=== PATIENT | male | born 1960 | race Caucasian/White ===

== ENCOUNTER 2017-10-03 16:05 | Emergency (ER) | payer BC ==
[2017-10-03 16:17] VITALS: BP 133/89
[2017-10-03] MEDS ORDERED: Fluorescein Sod TOPICAL 0.6* 0.6 MG TEST OPHTHALMIC ONE (16:31)
[2017-10-03] MEDS ORDERED: Tetracaine 0.5% OPTH.SOL 4 ML* 1 DROP BTL LEFT EYE ONE (16:31)
--- NOTE | 2017-12-09 09:14 | UC ---
Mitch Douglas Gabriel, scribed for Marilyn Poon MD on 10/03/17 at 1628 . Eye Complaint HPI - HPI Summary HPI Summary: This patient is a 57 year old M presenting to [facility] with a chief complaint of a swollen left eye lid that he noticed upon waking up this morning. The patient rates the dull pain 2/10 in severity. Patient reports eyelid pain. Patient denies TEJEDA, cough, fever, SOB, CP, ABD pain, nausea, and itching. Pt has not been wielding recently and does not wear contact lenses. He states that is does not feel like a foreign body is in his eye. - History of Current Complaint Chief Complaint: UCEye Stated Complaint: EYE COMPLAINT Time Seen by Provider: 10/03/17 16:20 Hx Obtained From: Patient Onset/Duration: Lasting Hours, Still Present Timing: Constant Severity Initially: Mild Severity Currently: Mild Pain Intensity: 2 Pain Scale Used: 0-10 Numeric Location of Injury: Eye Lid (upper) Character: Dull Associated Signs And Symptoms: Positive: Negative - itching - Allergies/Home Medications Allergies/Adverse Reactions: Allergies Allergy/AdvReac Type Severity Reaction Status Date / Time No Known Allergies Allergy Verified 10/03/17 16:17 PMH/Surg Hx/FS Hx/Imm Hx - Additional Past Medical History Additional PMH: Arthritis Other History Of: Negative For: Anticoagulant Therapy - Surgical History Surgical History: None - Family History Known Family History: Positive: Cardiac Disease Negative: Respiratory Disease, Seizure Disorder - Social History Occupation: Employed Full-time Lives: With Family Alcohol Use: None Substance Use Type: None Smoking Status (MU): Heavy Every Day Tobacco Smoker - Immunization History Most Recent Tetanus Shot: unk Review of Systems Constitutional: Negative - fever Eyes: Other - swelling in left lid, pain at left lid All Other Systems Reviewed And Are Negative: Yes Physical Exam - Summary Physical Exam Summary: Appearance: Well-Nourished Eye Exam: Normal ENT Exam: Normal, No adenopathy appreciated. Left TM is scared, right is normal Respiratory Exam: Normal, no dyspnea, no tachypnea, normal respiratory rate Cardiovascular Exam: Normal Cardiovascular: Heart rate regular, good general skin color, good capillary refill Abdominal Exam: Normal Abdomen Description: Nontender, No Organomegaly, Soft Bowel Sounds: Present Musculoskeletal Exam: Normal Musculoskeletal: Strength Intact Neurological Exam: Normal: nonfocal, grossly intact Psychological Exam: Normal: conversing easily and appropriately Skin Exam: Normal: no visible or reported rash Triage Information Reviewed: Yes Vital Signs: Initial Vital Signs Temp 98.2 F 10/03/17 16:12 Pulse 76 10/03/17 16:12 Resp 18 10/03/17 16:12 BP 133/89 10/03/17 16:12 Pulse Ox 97 10/03/17 16:12 Vital Signs Reviewed: Yes Procedures - Procedure Summary Procedure Summary: Fluorescence drops placed in the left eye there was no uptake, no foreign body seen. Eye Complaint Course/Dx - Differential Dx/Diagnosis Provider Diagnoses: Elevated blood pressure without a previous diagnoses of hypertension Discharge - Sign-Out/Discharge Documenting (check all that apply): Discharge/Admit/Transfer - Discharge Plan Condition: Stable Disposition: HOME Prescriptions: Erythromycin OPTH OINT* [Erythromycin 0.5% OPTH OINT*] 1 applic LEFT EYE TID #1 ophth.oint Olopatadine 0.1% OPHTH (NF) [Patanol 0.1% OPHTH (NF)] 0.1 % OP BID #1 bottle Patient Education Materials: Antihistamine (By mouth), Ibuprofen (By mouth), Stye (ED) Referrals: Michael Bermeo MD [Primary Care Provider] - Clemente Stiles MD [Medical Doctor] - Triston Powers MD [Medical Doctor] - Additional Instructions: Your blood pressure was elevated during today's visit, 133/89. Please follow up with your primary care provider in 1-2 weeks. Please seek medical attention for worse or new problems. Please follow up with eye doctor. Call Friday for appointment, if your eye is not better. seek medical attention in the meantime if worse. - Billing Disposition and Condition Condition: STABLE Disposition: Home The documentation as recorded by the Mitch beth Gabriel accurately reflects the service I personally performed and the decisions made by me, Marilyn Poon MD.
== END 2017-10-03 17:25 | disposition home or self-care (01) ==
LOC: UCEAST 16:05
DX: H02.844 Edema of left upper eyelid (principal); H57.12 Ocular pain, left eye; R03.0 Elevated blood-pressure reading, without diagnosis of hypertension; Z82.49 Family history of ischemic heart disease and other diseases of the circulatory system; F17.200 Nicotine dependence, unspecified, uncomplicated
CPT/HCPCS: 99212; A9270-GY; G0463

== ENCOUNTER 2018-04-09 16:26 | Observation (INO) | payer BC ==
--- NOTE | 2018-04-09 19:01 | ED ---
Neurological HPI - HPI Summary HPI Summary: A 57 y/o M presents to ED by car with c/o L-sided neck pain onset this afternoon. Pt says he first noticed L-sided facial numbness near his mouth this AM upon waking, but he did not dribble his coffee. The neck pain worsened throughout the day. He also c/o full-body tingling on L side. Associated sx include slurring words and L-sided facial droop at 1330 as witnessed by daughter during lunch. Daughter is not present at bedside. Denies dysphagia. Aggravating factors: stress (per ). Per , these sx have presented in the past and theyve never gotten a specific dx. Pt was doing bathroom repairs earlier today. He took Tylenol during lunch. Vital signs while in room: BP 162/89. 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 Onset/Duration: Gradual Onset, Started hours ago, Still Present Timing: Constant Onset Severity: Moderate Current Severity: Mild Number of Seizures: 0 Pain Intensity: 6 Pain Scale Used: 0-10 Numeric Number of Episodes: 0 Aggravating: Stress Alleviating: Nothing Associated Signs and Symptoms: Positive: Impaired Speech, Numbness, Neck Pain/ Stiffness - Allergy/Home Medications Allergies/Adverse Reactions: Allergies Allergy/AdvReac Type Severity Reaction Status Date / Time No Known Allergies Allergy Verified 04/09/18 16:36 Home Medications: Home Medications Cyclobenzaprine TAB* [Flexeril 10 MG TAB*] 10 mg PO TID PRN 04/09/18 [History Confirmed 04/09/18] PMH/Surg Hx/FS Hx/Imm Hx Previously Healthy: No Endocrine/Hematology History: Denies: Hx Anticoagulant Therapy, Hx Diabetes, Hx Thyroid Disease Cardiovascular History: Denies: Hx Hypertension Respiratory History: Denies: Hx Asthma, Hx Chronic Obstructive Pulmonary Disease (COPD) GI History: Denies: Hx Ulcer Musculoskeletal History: Reports: Hx Back Problems - Surgical History Surgery Procedure, Year, and Place: R-sided facial surgery as child - Immunization History Immunizations Up to Date: Yes Infectious Disease History: No Infectious Disease History: Denies: Hx Hepatitis, Hx Human Immunodeficiency Virus (HIV), Traveled Outside the [place] in Last 30 Days - Family History Known Family History: Positive: Cardiac Disease - mom - NH in her 80s; brother NH 2x, Other - liver CA Negative: Respiratory Disease, Seizure Disorder - Social History 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 Lives: With Family Alcohol Use: None Hx Substance Use: No Substance Use Type: Reports: None Hx Tobacco Use: Yes Smoking Status (MU): Heavy Every Day Tobacco Smoker Review of Systems Negative: Other - neg: dysphagia Positive: Other - pos: L-sided neck pain Neurological: Other - pos: L-sided full-body tingling; L-sided facial droop; Positive: Numbness - L-sided face by mouth, Slurred Speech All Other Systems Reviewed And Are Negative: Yes Physical Exam - Summary Physical Exam Summary: Appearance: Well-appearing, moderate pain distress, well-nourished Skin: Warm, color reflects adequate perfusion, dry Head: Normal Head/Face inspection, atraumatic Eyes: Conjunctiva clear ENT: Normal inspection, poor dentition Neck: Supple, no nodes, no JVD Respiratory: Lungs clear, normal breath sounds, no respiratory distress Cardio: RRR, No murmur, pulses normal, brisk capillary refill Abdomen: Soft, nontender Bowel sounds: Present Musculoskeletal: Strength Intact/ROM intact, no calf tenderness, no edema. Psychological: Normal Neuro: A&O x3, CN II-XII intact, motor function 5/5, sensation intact, cerebellar normal. See HPI. Triage Information Reviewed: Yes Vital Signs On Initial Exam: Initial Vitals Temp Pulse Resp BP Pulse Ox 97.1 F 67 18 147/81 98 04/09/18 16:28 04/09/18 16:28 04/09/18 16:28 04/09/18 16:28 04/09/18 16:28 Vital Signs Reviewed: Yes - Edmar Coma Scale Best Eye Response: 4 - Spontaneous Best Motor Response: 6 - Obeys Commands Best Verbal Response: 5 - Oriented Coma Scale Total: 15 Diagnostics - Vital Signs Vital Signs Temp Pulse Resp BP Pulse Ox 04/09/18 18:20 98.2 F 63 16 143/78 99 04/09/18 16:28 97.1 F 67 18 147/81 98 - Laboratory Result Diagrams: 04/09/18 19:29 04/09/18 19:29 Lab Statement: Any lab studies that have been ordered have been reviewed, and results considered in the medical decision making process. - CT BRAIN CT Interpretation Completed By: Radiologist Summary of CT Findings: IMPRESSION: No acute intracranial pathology. ED provider has reviewed this report. CTA head and neck CT Interpretation Completed By: Radiologist Summary of CT Findings: Neg CTA brain and neg CTA neck. Bilateral maxillary sinus disease, right greater than left. - EKG 1929 Cardiac Rate: NL - 61 bpm EKG Rhythm: Sinus Rhythm ST Segment: Non-Specific Ectopy: None EKG Comparison: Other - No prior EKG. Summary of EKG Findings: An EKG at [address], nml QTc, and nml axis. No prior EKG for comparison. NIH Scale - NIH Scale Level of Consciousness: Alert/Keenly Responsive Ask Patient the Month and His/Her Age: Both Correct Ask Pt to Open/Close Eyes and Healthcare Manager/Release Non-Paretic Hand: Both Correctly Best Gaze (Only Horizontal Eye Movement): Normal Visual Field Testing: No Visual Loss Facial Paresis-Pt to Smile & Close Eyes or Grimace Symmetry: Normal/Symmetrical Motor Function - Right Arm: No Drift-Holds 10 Seconds Motor Function - Left Arm: No Drift-Holds 10 Seconds Motor Function - Right Leg: No Drift-Holds 10 Seconds Motor Function - Left Leg: No Drift-Holds 10 Seconds Limb Ataxia-Must be out of Proportion to Weakness Present: Absent Sensory (Use Pinprick to Test Arms/Legs/Trunk/Face): Normal Best Language (Describe Picture, Name Items): No Aphasia Dysarthria (Read Several Words): Normal Extinction and Inattention: No Abnormality Total Score: 0 Re-Evaluation - Re-Evaluation First Eval Re-Evaluation Time: 20:15 Change: Unchanged Comment: No new sxs. No facial droop. BP 150/90. with pt. Both informed of CT brain results. Second Eval Re-Evaluation Time: 22:15 Change: Unchanged Comment: still with left lip numbness, no other weakness, aphasia or facial droop. BP 133/84. P57. Course/Dx - Course Course Of Treatment: Pt is a 57 y/o M presenting with c/o L-sided neck pain onset this afternoon. He first noticed L-sided facial numbness near his mouth this AM, but he did not dribble his coffee. The neck pain worsened throughout the day. He also c/o full-body tingling on L side. Associated sx include slurring words and L-sided facial droop at 1330 as witnessed by daughter during lunch. Daughter is not present at bedside. Denies dysphagia. Pt's NIH score is 0, and upon PE, is neurologically intact. Lab results show: WBC: 10.9, APTT: 38.6. UA shows 1+ blood and low specific gravity. EKG is NSR and Brain CT shows no acute intracranial pathology. Toxicology is negative. UA reviewed. Allergies noted, high blood pressure noted. Pt medications reviewed this visit. - Differential Dx Differential Diagnoses Neuro: Positive: Cerebrovascular Accident, Transient Ischemic Attack - Diagnoses Provider Diagnoses: Hypertension, poor control, Tobacco abuse disorder, TIA (transient ischemic attack) - Physician Notifications Discussed Care Of Patient With: Hong Dixon Time Discussed With Above Provider: 22:30 Discharge - Sign-Out/Discharge Documenting (check all that apply): Patient Departure - ADM - Discharge Plan Condition: Stable Disposition: ADMITTED TO [facility] - Billing Disposition and Condition Condition: STABLE Disposition: Admitted to [facility] - Attestation Statements Document Initiated by Scribe: Yes Documenting Scribe: Clifton Evans Provider For Whom Scribe is Documenting (Include Credential): Dr. Felecia Soler MD Scribe Attestation: Clifton Douglas, scribed for Dr. Felecia Soler MD on 04/10/18 at 0047.
[2018-04-09 19:43] LABS: ABS Basophils 0.1 10^3/ul (0-0.2); ABS Eosinophils 0.1 10^3/ul (0-0.6); ABS Monocytes 0.9 10^3/ul (0-0.8); ABS Neutrophils 5.9 10^3/ul (1.5-7.7); ABS Nucleated RBC 0 10^3/ul; Eosinophil % 1.1 % (0-6); Hematocrit 42 % (42-52); Hemoglobin 14.6 g/dl (14.0-18.0); Lymphocyte % 36.2 % (25-47); Mean Corpuscular HGB Conc 35 g/dl (31-36); Mean Corpuscular Hemoglobin 31 pg (27-31); Mean Corpuscular Volume 89 fL (80-94); Mean Platelet Volume 8.1 um3 (7.4-10.4); Nucleated Red Blood Cells % 0.1; Platelet Count 272 10^3/ul (150-450); Red Blood Count 4.68 10^6/ul (4.00-5.40); Red Cell Distribution Width 13 % (10.5-15); White Blood Count 10.9 10^3/ul (3.5-10.8)
--- NOTE | 2018-04-09 19:46 | RAD ---
EXAM: CT Head Without Intravenous Contrast CLINICAL HISTORY: 57 years old, male; Signs and symptoms; Other: Left facial droop since this am; Additional info: Left facial droop numbness, slurred speech resolved TECHNIQUE: Axial computed tomography images of the head/brain without intravenous contrast. All CT scans at this facility use at least one of these dose optimization techniques: automated exposure control; mA and/or kV adjustment per patient size (includes targeted exams where dose is matched to clinical indication); or iterative reconstruction. COMPARISON: No relevant prior studies available. FINDINGS: Brain: No intracranial hemorrhage or extra-axial fluid collection. No evidence of mass effect or midline shift. Chiu-white matter differentiation is normal. Ventricles: Ventricles and sulci are normal. Bones/joints: No acute osseous lesions or fractures. Soft tissues: Unremarkable. Sinuses: Mild mucosal thickening of the right maxillary sinus. Mastoid air cells: Unremarkable as visualized. No mastoid effusion. IMPRESSION: No acute intracranial pathology. To contact [facility] with a general question: [facility] - [phone] For direct physician to physician contact: Physician Hotline - [phone] [facility] ([facility] Facility ID #[id number])
[2018-04-09 19:48] LABS: INR 1.02 (0.77-1.02)
[2018-04-09 19:55] LABS: EGFR Non-African American 83.7 (>60)
[2018-04-09] MEDS ORDERED: Ondansetron INJ* 2 MG/ML VIAL IV ONE (20:21)
[2018-04-09] MEDS ORDERED: Iohexol 350* (CONTRAST) 500 ML MDV IV ONE (20:29)
[2018-04-09] MEDS ORDERED: NS 0.9% 1000 ML* 1,000 ML IV SCH (20:30)
[2018-04-09 20:43] LABS: Urine Appearance Clear; Urine Blood 1+ (Negative); Urine Color Straw; Urine Ketones Negative (Negative); Urine Protein Negative (Negative); Urine Red Blood Cell Absent (Absent); Urine Specific Gravity 1.004 (1.010-1.030); Urine Urobilinogen Negative (Negative); Urine White Blood Cell Trace(0-5/hpf) (Absent)
--- NOTE | 2018-04-09 21:51 | RAD ---
EXAM: CT Angiography Head With Intravenous Contrast EXAM DATE/TIME: 04/09/2018 8:58 PM CLINICAL HISTORY: 57 years old, male; Signs and symptoms; Other: L neck pain, l facial droop; Additional info: L neck pain, l facial droop, slurred speech resolve TECHNIQUE: Axial computed tomographic angiography images of the head with intravenous contrast using CT angiography protocol. All CT scans at this facility use at least one of these dose optimization techniques: automated exposure control; mA and/or kV adjustment per patient size (includes targeted exams where dose is matched to clinical indication); or iterative reconstruction. Coronal and sagittal reformatted images were created and reviewed. MIP and 3D reconstructed images were created and reviewed. CONTRAST: 80 ml of [id number] administered intravenously. COMPARISON: BRAIN WO CT BRAIN WO 04/09/2018 7:13 PM FINDINGS: Right internal carotid artery: Unremarkable. Intracranial segment is patent with no significant stenosis. No aneurysm. Right anterior cerebral artery: Unremarkable. No occlusion or significant stenosis. No aneurysm. Right middle cerebral artery: Unremarkable. No occlusion or significant stenosis. No aneurysm. Right posterior cerebral artery: Unremarkable. No occlusion or significant stenosis. No aneurysm. Right vertebral artery: Unremarkable. No occlusion or significant stenosis. No aneurysm. Left internal carotid artery: Unremarkable. Intracranial segment is patent with no significant stenosis. No aneurysm. Left anterior cerebral artery: Unremarkable. No occlusion or significant stenosis. No aneurysm. Left middle cerebral artery: Unremarkable. No occlusion or significant stenosis. No aneurysm. Left posterior cerebral artery: Unremarkable. No occlusion or significant stenosis. No aneurysm. Left vertebral artery: Unremarkable. No occlusion or significant stenosis. No aneurysm. Basilar artery: Unremarkable. No occlusion or significant stenosis. No aneurysm. IMPRESSION: Negative CTA head. EXAM: CT Angiography Neck With Intravenous Contrast EXAM DATE/TIME: 04/09/2018 8:58 PM CLINICAL HISTORY: 57 years old, male; Signs and symptoms; Other: L neck pain, l facial droop; Additional info: L neck pain, l facial droop, slurred speech resolve TECHNIQUE: Axial computed tomographic angiography images of the neck with intravenous contrast using CT angiography protocol. All CT scans at this facility use at least one of these dose optimization techniques: automated exposure control; mA and/or kV adjustment per patient size (includes targeted exams where dose is matched to clinical indication); or iterative reconstruction. Coronal and sagittal reformatted images were created and reviewed. MIP and 3D reconstructed images were created and reviewed. CONTRAST: 80 ml of [id number] administered intravenously. COMPARISON: BRAIN WO CT BRAIN WO 04/09/2018 7:13 PM FINDINGS: VASCULATURE: Right common carotid artery: Normal. No significant stenosis. No dissection or occlusion. Right internal carotid artery: Normal. Extracranial segment is patent with no significant stenosis. No dissection or occlusion. Right external carotid artery: Normal. No occlusion or significant stenosis. Right vertebral artery: Normal. No significant stenosis. No dissection or occlusion. Left common carotid artery: Normal. No significant stenosis. No dissection or occlusion. Left internal carotid artery: Normal. Extracranial segment is patent with no significant stenosis. No dissection or occlusion. Left external carotid artery: Normal. No occlusion or significant stenosis. Left vertebral artery: Normal. No significant stenosis. No dissection or occlusion. NECK: Sinuses: Bilateral maxillary sinus mucosal thickening, right greater than left Bones/joints: Mild degenerative changes of the cervical spine. Soft tissues: Normal. No significant soft tissue swelling. IMPRESSION: 1. Bilateral maxillary sinus disease, right greater than left. 2. Negative CTA neck. COMMENT: Degree of carotid stenosis was determined using NASCET or SRU criteria. Mild: <50% stenosis. Moderate: 50-69% stenosis. Severe: 70-94% stenosis. Near occlusion: 95-99% stenosis. Occluded: 100% stenosis. To contact [facility] with a general question: [facility] - [phone] For direct physician to physician contact: Physician Hotline - [phone] [facility] ([facility] Facility ID #[id number])
[2018-04-09] MEDS ORDERED: Aspirin EC TAB* 325 MG PO ONE (22:24)
[2018-04-09] MEDS ORDERED: Acetaminophen TAB* 325 MG PO PRN (22:55)
[2018-04-09] MEDS ORDERED: Ondansetron INJ* 2 MG/ML VIAL IV PRN (22:55)
[2018-04-09] MEDS ORDERED: Cyclobenzaprine TAB* 10 MG PO PRN (22:59)
[2018-04-10 05:57] LABS: ABS Basophils 0.1 10^3/ul (0-0.2); ABS Eosinophils 0.1 10^3/ul (0-0.6); ABS Lymphocytes 2.5 10^3/ul (1.0-4.8); ABS Neutrophils 9.9 10^3/ul (1.5-7.7); ABS Nucleated RBC 0 10^3/ul; Eosinophil % 0.8 % (0-6); Hematocrit 42 % (42-52); Hemoglobin 14.3 g/dl (14.0-18.0); Lymphocyte % 18.6 % (25-47); Mean Corpuscular HGB Conc 34 g/dl (31-36); Mean Corpuscular Hemoglobin 31 pg (27-31); Mean Corpuscular Volume 90 fL (80-94); Mean Platelet Volume 8.3 um3 (7.4-10.4); Nucleated Red Blood Cells % 0.1; Platelet Count 257 10^3/ul (150-450); Red Blood Count 4.68 10^6/ul (4.00-5.40); Red Cell Distribution Width 13 % (10.5-15); White Blood Count 13.7 10^3/ul (3.5-10.8)
[2018-04-10] MEDS: Heparin VIAL(*) 5000 UNITS/ML VIAL (FIVE THOUSAND) SUBCUT SCH ×2 (06:11→13:18)
--- NOTE | 2018-04-10 06:12 | HP ---
CC: Dr. Bermeo; Dr. Dixon * HISTORY AND PHYSICAL: DATE OF ADMISSION: 04/09/18 PRIMARY CARE PROVIDER: Dr. Bermeo. CONSULTING NEUROLOGIST: Dr. Dixon. ATTENDING PROVIDER: Dr. Flynn * (DICTATED BY JESSICA PRUITT NP) CHIEF COMPLAINT: 1. Facial numbness. 2. Left arm and leg numbness. 3. Slurred speech. HISTORY OF PRESENT ILLNESS: Mr. Meredith is a 57-year-old male patient that woke up this morning with complaints of having facial numbness particularly on his left lip. It progressively got worse throughout the day where he started noticing having left arm numbness and left leg numbness. He says that initially he had no trouble with speech, but his noted that his speech was slurred and not at his baseline. There was no reports of weakness to the arm or to the leg. There was reports of him having some left-sided neck pain and then he did have some shooting pain at times down from the neck and into the shoulder. He again had no weakness. He did have some numbness to the arm and to the leg. He was concerned as was his that he may be having signs of a stroke, so they brought him in. There has been reports of slurred speech, but no trouble with finding words. The patient denies having any recent fevers or chills. Denied having any headache. He did admit to having the left-sided neck pain which comes and goes, now gone. 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 He has a history of smoking only, but does not have any other medical history with the exception of chronic neck discomfort and spasms for which he takes p.r.n. Flexeril for. He came into the hospital, there was concern for possible TIA, stroke symptoms, as the only symptom he has now is this numbness near his left lip. There was also reports of a slight facial droop per the family. We were asked to evaluate for further admission for possible TIA versus stroke. PAST MEDICAL HISTORY: Significant for chronic neck and back pain. PAST SURGICAL HISTORY: He has had facial reconstruction surgery. MEDICATIONS: Home Medications include flexeril 10 mg t.i.d. as needed for spasms. ALLERGIES TO MEDICATIONS: Include no known drug allergies. FAMILY HISTORY: Mother was diabetic and had an CO. Father had liver cancer. SOCIAL HISTORY: He is about a pack a day smoker. He does not drink alcohol, lives with his . Surrogate decision maker is his . 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 REVIEW OF SYSTEMS: Reveals no documented fever. He denied having any significant weight change. There was no double vision. He denies having any ear discharge, denies having any rhinorrhea. There is no sore throat and no thyroid enlargement. Again, he denied having any chest pain. There was no orthopnea, there was no nocturnal dyspnea. There was no abdominal pain. There was no nausea, no vomiting, and no dysuria. There was no frequency, no seizure, no loss of consciousness, no pruritus and no skin ulceration. Review of 14 systems completed, all others negative. PHYSICAL EXAMINATION GENERAL: At this time, Mr. Meredith is a 57-year-old male patient, he is sitting in the ED stretcher. He does not appear to be in any acute distress. VITAL SIGNS: Blood pressure 153/87, pulse 72, respirations 16, O2 sat 97%, temperature 98.2. HEENT: Head atraumatic and normocephalic. Eyes: EOMs intact. Sclerae are anicteric and not pale. Pupils are reactive to light. NECK: Supple. Throat, oral mucosa appears to be moist. No oropharyngeal erythema. LUNGS: Clear to auscultation bilaterally. There is no wheezes, rales, or rhonchi. HEART: Sounds S1 and S2. He had a regular, rate, and rhythm. No murmurs, rubs , or gallops. ABDOMEN: Soft, it was flat, nontender. Bowel sounds present. EXTREMITIES: Pulses were 2+ throughout. He is moving all 4 extremities with 5/ 5 strength. NEUROLOGIC: The patient is awake, he is alert. He is oriented x3. His speech sounded clear to me. He had good fluency with his speech. [id number] is intact bilaterally. Zghr-aq-[id number] was intact bilaterally. He had no drift in the leg, no drift in the upper extremities. Visual dickinson were intact and no nystagmus on my exam. Subjectively, when touching both his legs and both his arms, he said the left side did feel sensory was a little less pronounced than on the right side. He also noticed that in his face in the left side by his lips that he was having increased numbness on that side versus his right side. His tongue did appear to be midline. His cranial nerves were intact. He had no other focal deficits on exam. His skin was intact. DIAGNOSTIC STUDIES/LABORATORY DATA: Labs revealed a WBC of 10.9, RBC of 4.68, hemoglobin of 14.6, hematocrit of 42, platelet count of 272. INR was 1.02, PTT was 38.6. The sodium was 141, potassium of 3.8, chloride of 107, bicarb 29, BUN 11, creatinine of 0.93, glucose 77, lactate of 1, calcium 9.3. Total bili 0.3, AST 12, ALT 10, alk phos 90, troponin was 0, total protein was 6.8, albumin was 3.9. Urine showed specific gravity, 1+ blood. Toxicology was negative. He had a brain CT obtained today. Impression: No acute intracranial pathology. He had a head CTA obtained today which showed negative CTA head and an impression of bilateral maxillary sinus disease, right greater than left. Negative CTA neck. He had an EKG obtained today. I do not have the previous one for comparison, but the EKG today does show a normal sinus rhythm at a rate of 61. He had no ST elevations or T-wave inversions noted. Old medical records were reviewed. ASSESSMENT AND PLAN: Mr. Meredith is a 57-year-old male patient coming into the ED today with complaints of numbness on the left side of his face. Numbness to his left arm, and left leg, and in addition to this, difficulty with speech in the sense that he was having slurred speech. Symptoms are now resolving. We were asked to evaluate for admission. He will be admitted under observation status for: 1. Transient ischemic attack versus cerebrovascular accident. Again, this may be the culprit of his neurological symptoms. He has certainly risk factors in the sense that he is a heavy smoker. My plan at this point is to continue baby aspirin, check lipid panel, A1c, echo. CTA was done which was negative. Brain CT was negative as well. His symptoms do appear to be resolving. We will get an MRI of the brain, place him on telemetry. Get an echo with bubble study and we will continue to follow. 2. Neck pain. Again, it is concerning that he was having the numbness down into the left arm with associated neck pain. I do think that this warrants to get an MRI of the cervical spine as well to make sure there was not any cervical disk disease that might be contributing to some of these symptoms and we will continue to monitor. 3. DVT prophylaxis: He will be placed on heparin subcu. 4. Code status: He is a full code. 5. Fluids, electrolytes, and nutrition: His bedside swallow eval is pending. If he passes, he can have a heart-healthy diet. TIME SPENT: Time spent on the admission is 60 minutes, greater than half the time was spent [id number] with the patient obtaining my history and physical, other half the time was spent going over the plan of care with the patient and implementing the plan of care. I did discuss the plan of care with my attending , Dr. Flynn; she is in agreement. JESSICA PRUITT NP [id number]/CPS #: [id number] EJSSE
[2018-04-10 06:19] LABS: EGFR Non-African American 105.7 (>60)
[2018-04-10] MEDS ORDERED: Aspirin 81 mg CHEW TAB* 81 MG TAB.CHEW PO SCH (09:00)
--- NOTE | 2018-04-10 09:14 | HP ---
Allergies/Medications Allergies/Adverse Reactions: Allergies Allergy/AdvReac Type Severity Reaction Status Date / Time No Known Allergies Allergy Verified 04/09/18 16:36
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
--- NOTE | 2018-04-10 12:06 | RAD ---
HISTORY: cva tia COMPARISONS: Head CT dated April 09, 2018 TECHNIQUE: The following sequences were obtained of the head: Sagittal T1-weighted images, axial T2-weighted images, axial FLAIR images, axial susceptibility weighted images, axial T1-weighted images. Additionally, axial diffusion-weighted images were obtained with calculated apparent diffusion coefficients. FINDINGS: HEMORRHAGE/INFARCT: There is no hemorrhage or acute infarct. MASSES/SHIFT: There is no mass or shift. EXTRA-AXIAL SPACES/MENINGES: There are no extra-axial fluid collections. SULCI AND VENTRICLES: The sulci and ventricles are normal in size and position for the patient's stated age. CEREBRUM: There is a small focus of encephalomalacia of the left precentral gyrus suggestive of remote infarct. BRAINSTEM: There are no focal parenchymal abnormalities. CEREBELLUM: There are no focal parenchymal abnormalities. The cerebellar tonsils are normal in size and position. SELLA: The sella is normal. PINEAL: The pineal region is clear. CP ANGLE/TEMPORAL BONES: The labyrinthine structures are grossly normal. VESSELS: Normal flow-voids are noted within the visualized vertebral vasculature. DIFFUSION ABNORMALITIES: There are no diffusion abnormalities. PARANASAL SINUSES/MASTOIDS: There is mucosal thickening of the maxillary sinuses bilaterally. ORBITS: The orbits are unremarkable. BONES AND SOFT TISSUE: No bone or soft tissue abnormalities are noted. OTHER: None IMPRESSION: SMALL FOCUS OF ENCEPHALOMALACIA OF THE LEFT PRECENTRAL GYRUS SUGGESTIVE OF REMOTE INFARCT, WITHOUT RESTRICTED DIFFUSION TO SUGGEST ACUTE INFARCT.
--- NOTE | 2018-04-10 12:08 | RAD ---
HISTORY: neck pain COMPARISONS: December 23, 2007 TECHNIQUE: The following sequences were obtained of the cervical spine: Sagittal T1- and T2-weighted images, sagittal STIR images, axial T2 and gradient echo images. FINDINGS: BRAIN AND SPINAL CORD: The visualized spinal cord is normal in caliber, position, and signal intensity. The visualized portion of the brain is unremarkable. The cerebellar tonsils are normal in position. ALIGNMENT: The alignment is normal. VERTEBRAL BODIES: There is mild anterolateral marginal osteophyte formation. JOINTS: There is uncovertebral and facet osteoarthritis. MUSCULATURE: Unremarkable. INTERVERTEBRAL DISCS: There is diffuse loss of intervertebral disc height and T2 signal throughout the spine. AXIAL IMAGES: C2-C3: There is mild bilateral neural foraminal narrowing. There is no significant central canal stenosis. C3-C4: There is moderate bilateral neuroforaminal narrowing. There is no significant central canal stenosis. C4-C5: There is moderate left and mild right neural foraminal narrowing. There is no significant central canal stenosis. C5-C6: There is severe bilateral neuroforaminal narrowing. There is mild narrowing of the central canal. C6-C7: There is severe right and moderate left neural foraminal narrowing. There is mild narrowing of the central canal. C7-T1: There is no disc herniation, spinal stenosis, or neuroforaminal narrowing. SOFT TISSUES: The visualized soft tissues of the neck are unremarkable. OTHER: None. IMPRESSION: 1. DEGENERATIVE DISC DISEASE AND OSTEOARTHRITIS. 2. THERE IS MILD NARROWING OF THE CENTRAL CANAL AT C5-C6 AND C6-C7. 3. THERE IS MULTILEVEL NEUROFORAMINAL NARROWING DESCRIBED ABOVE.
--- NOTE | 2018-04-10 14:09 | RAD ---
HISTORY: Vertebrobasilar insufficiency with neck rotation COMPARISONS: None. TECHNIQUE: Multiple transverse and longitudinal ultrasound images were obtained of the vertebral arteries bilaterally with passive neck motion using grayscale, color Doppler and spectral doppler imaging. FINDINGS: Interrogation of the proximal vertebral arteries bilaterally demonstrate normal antegrade arterial waveforms in all positions without elevated velocities to suggest stenosis or reversal of flow.. IMPRESSION: NORMAL PROXIMAL VERTEBRAL ARTERIES BILATERALLY WITH AND WITHOUT NECK MOTION
[2018-04-10 15:36] VITALS: BP 117/66
--- NOTE | 2018-04-10 16:52 | ECHO ---
Patient: RIZWAN FLORES Rec#: [id number] : 1960 Date: 04/10/2018 Age: 57y Height: 185.42 cm / 73.0 in Weight: 83.91 kg / 184.9 lbs Sex: M BSA: 2.08 Room#: 432 Admit Date#: 04/09/2018 Type: Inpatient Referring: Carrington Lucas NP Reading: Danial Bustillos MD [employer]: Radha Figueroa RDCS CC: Michael Bermeo MD Transthoracic Echocardiogram Indication: CVA BP: 107/56 HR: 57 Rhythm: Bradycardia Findings History: Smoker. Technical Comments: The study is technically limited due to poor parasternal windows. Left Ventricle: The left ventricular chamber size is normal. Mild to moderate concentric left ventricular hypertrophy is observed. Left ventricular systolic function is at the lower limits of normal. The estimated ejection fraction is 50-55%. Abnormal left ventricular diastolic function is observed. Abnormal left ventricular diastolic filling is observed, consistent with impaired relaxation. Left Atrium: The left atrial chamber size is normal. Right Ventricle: Moderator Band present. The right ventricular cavity size is normal. The right ventricular global systolic function is normal. Right Atrium: The right atrial cavity size is normal. Interatrial septum appears intact without evidence of shunting. The bubble study is negative. A patent foramen ovale is not demonstrated with color Doppler and agitated contrast. Aortic Valve: The aortic valve is trileaflet. The aortic valve leaflets are mildly thickened. There is a trace of aortic regurgitation. There is no evidence of aortic stenosis. Mitral Valve: The mitral valve leaflets are mildly thickened. There is a trace of mitral regurgitation. There is no evidence of mitral stenosis. Tricuspid Valve: The tricuspid valve leaflets are normal. There is a physiologic tricuspid regurgitation. Unable to estimate the right ventricular systolic pressure. There is no tricuspid stenosis. Pulmonic Valve: The pulmonic valve appears normal. There is a trace pulmonic regurgitation. There is no pulmonic stenosis. Pericardium: There is no significant pericardial effusion. Aorta: There is no dilatation of the ascending aorta. There is no dilatation of the aortic arch. The aortic root is normal in size. Pulmonary Artery: The main pulmonary artery is not well visualized. Venous: The inferior vena cava appears normal in size. There is a greater than 50% respiratory change in the inferior vena cava dimension. Contrast: Normal saline was used as contrast for the bubble study. Images 57 and 58. Intravenous contrast was used to help determine presence of intracardiac shunting. Summary: There was not any prior study for comparison. Conclusions Mild to moderate concentric left ventricular hypertrophy is observed. Left ventricular systolic function is at the lower limits of normal. The estimated ejection fraction is 50-55%. Abnormal left ventricular diastolic filling is observed, consistent with impaired relaxation. Interatrial septum appears intact without evidence of shunting. A patent foramen ovale is not demonstrated with color Doppler and agitated contrast. The aortic valve leaflets are mildly thickened. There is a trace of mitral regurgitation. There is a physiologic tricuspid regurgitation. Measurements Name Value Normal Range RVIDd (AP) 2D 2.9 cm (0.9 - 2.6) RVDdMajor (2D) 4 cm (2.2 - 4.4) RAd ISD 4CH 4.7 cm (3.4 - 4.9) RA (A4C)W 3.8 cm (2.9 - 4.6) IVSd (2D) 1.3 cm (0.6 - 1) LVPWd (2D) 1.3 cm (0.6 - 1) LVIDd (2D) 3.7 cm (3.6 - 5.4) LVIDs (2D) 3 cm - LV FS (2D) 20 % (25 - 45) Aortic Annulus 1.6 cm (1.4 - 2.6) Ao root diameter (2D) 3.3 cm (2.1 - 3.5) Ascending Ao 3.1 cm (2.1 - 3.4) Aortic arch 2.1 cm (1.8 - 3.4) LA dimension (AP) 2D 3 cm (2.3 - 3.8) LAd ISD 4CH 4.9 cm (2.9 - 5.3) LA ISD 4CH W 3.8 cm (2.5 - 4.5) Name Value Normal Range LA ESV SP 4CH (A/L) 52 ml - LA ESV SP 2CH (A/L) 86 ml - LA ESV BP (A/L) 68 ml - LA ESV BP (A/L) index 33 ml/m2 - LA ESV SP 4CH (MOD) 48 ml - LA ESV SP 2CH (MOD) 79 ml - Name Value Normal Range MV E-wave Vmax 0.62 m/sec - MV deceleration time 263.9 msec - MV A-wave Vmax 0.53 m/sec - MV E:A ratio 1.16 ratio - LV septal e' Vmax 0.09 m/sec - LV lateral e' Vmax 0.15 m/sec - LV E:e' septal ratio 6.88 ratio - LV E:e' lateral ratio 4.13 ratio - Name Value Normal Range AV Vmax 1.2 m/sec - AV VTI 21.3 cm - AV peak gradient 5.99 mmHg - AV mean gradient 3.35 mmHg - LVOT Vmax 1.2 m/sec - LVOT VTI 19.6 cm - LVOT peak gradient 5.86 mmHg - LVOT mean gradient 2.91 mmHg - ADELINA Vmax 0.9 m/sec - Name Value Normal Range IVC diameter 1.3 cm - Name Value Normal Range PV Vmax 0.88 m/sec - PV peak gradient 3.13 mmHg -
[2018-04-10] MEDS ORDERED: Atorvastatin* 40 MG TAB PO SCH (17:00)
--- NOTE | 2018-04-11 08:09 | EEG ---
ELECTROENCEPHALOGRAPHY: DATE OF STUDY: 04/10/18 ORDERED BY: Hong Dixon MD. MEDICATION: 1. Heparin. 2. Atorvastatin. 3. Aspirin. 4. Acetaminophen. 5. Cyclobenzaprine. 6. Ondansetron. RECORDING TIME: From 1454 to 1524. INDICATION: Mr. 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 CLINICAL STATE: Awake and sleep. REPORT: The waking background showed appropriate organization with clearly defined anterior posterior voltage and frequency gradients. There was a well- defined a posterior dominant rhythm of 10 Hz which was symmetrical and showed normal reactivity. Anteriorly there was an expected pattern of lower voltage, irregular mixed faster frequencies. Attenuation to the occipital rhythm accompanied drowsiness. There were rare intervals of low voltage, faster central frequencies that are consistent with sleep spindle as well as high amplitude K complex sequences suggestive of stage 2 sleep. Photic stimulation and hyperventilation were not performed. There were no electrographic seizures. IMPRESSION: This is a normal awake and sleep EEG with no evidence of electrographic seizures or epileptiform discharges. An normal interictal EEG does not exclude nor support the diagnosis of epilepsy. Clinical correlation is recommended. [id number]/[facility] #: [id number] [facility]
--- NOTE | 2018-04-12 13:12 | DS ---
DISCHARGE SUMMARY: DATE OF ADMISSION: 04/09/18 DATE OF DISCHARGE: 04/10/18 ADMITTING PROVIDER: Carrington Lucas NP PRIMARY CARE PROVIDER: Dr. Bermeo CONSULTING NEUROLOGIST: Dr. Dixon ATTENDING ON DAY OF DISCHARGE: Davie Jackson MD CHIEF COMPLAINT: Left arm and leg numbness, slurred speech, and left lip numbness. PRINCIPAL DIAGNOSES: Cervical degenerative disc disease; unexplained facial symptoms, but initial concern for possible vertebrobasilar insufficiency. HISTORY OF PRESENT ILLNESS AND HOSPITAL COURSE: Dannielle Meredith is a 57-year- old male with past medical history of chronic neck, back pains, and intermittent left arm and leg numbness and paresthesias that occur several a times a year for the last approximately 10 years. Please see [facility] for full details, but his notes that his speech was slurred. He had some paresthesias in his left arm and leg and numbness. At first he denied that these episodes occur with weakness, but his did say that he sometimes does drop or have trouble holding onto cups and he does seem to have unsteady gait. He states that he sought medical attention multiple times over the years for these complaints and that workup have been negative in the past. 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 Given the frequency of these complaints and the prior negative workup, he was inclined to not to seek medical attention, but his and eventually his daughter finally convinced him to present to the [facility] Emergency Room. He had numerous studies during his stay including the following; CT brain without contrast, impression, no acute intracranial pathology. CTA head and neck with intravenous contrast on 04/09/18, impression, bilateral maxillary sinus disease, right greater than left, otherwise negative CTA of the neck. Also negative CTA of the head. Transthoracic echocardiogram, 04/10/18, ejection fraction 50% to 55%, abnormal left ventricular diastolic function. [id number] concentric left ventricular hypertrophy. No PFO was observed with color Doppler with agitated contrast. Intraarterial septum appeared intact without evidence of shunting. There was trace mitral regurgitation. Aortic valve leaflets were mildly thickened. Carotid ultrasound showed normal proximal vertebral arteries bilaterally with and without neck motion that was 04/10/18. MRI brain with and without contrast 04/10/18, small focus of encephalomalacia of the left precentral gyrus suggestive of remote infarct without restricted diffusion to suggest acute infarct. MRI cervical spine without contrast 04/10/18 and compared to 12/23/07, impression: 1. Degenerative disc disease and osteoarthritis. 2. Mild narrowing of the central canal at C5-C6 and C6-C7. 3. Multilevel neuroforaminal narrowing as described above, more specifically now at C5-C6 severe bilateral neuroforaminal narrowing and mild narrowing of central canal, C6-C7 severe right and moderate left neuroforaminal narrowing and mild narrowing of the central canal, C4-C5 moderate left and mild right neuroforaminal narrowing, C3-C4 moderate bilateral neuroforaminal narrowing, C2- C3 mild bilateral neuroforaminal narrowing. Dr. Dixon, neurologist consulted on the case and his differential included a small right pontine infarction versus TI to the basilar perforators. The fact that the symptoms were recurrent and seemed triggered by neck extension led him to be concerned for vertebrobasilar insufficiency. He commented that although CTA head did not show any evidence of large vessel occlusion or dissection, his reading of the right vertebral artery as congenitally narrow. The the facial weakness, dysarthria, and lip numbness was potentially through a cervical spine pathology was noted to be unlikely unless a coordinated cervical disc "causing transient rotational compression of the vertebral artery. Although this is rare, the recurrent stereotypical episodes in the setting of the neck pain does raise a concern." His other differential includes painless migraine, cluster headache, or demyelinating disease, of note, the latter was not evidenced with MRI. An EEG was performed, which did not show any seizure- like activities. Of note, patient has record of a 10/25/05, MRI of the cervical spine without contrast for similar indications of facial droop, numbness, and neck pain. Impression at that time was disc osteophyte complex on the left at the C5-C6 level extending into the left neuroforaminal where there is also uncovertebral process hypertrophy, which may be compromising the left C6 nerve root. Patient was for discharge and the plan was to follow up with Dr. Errol Fajardo of Neurology and primary care provider, Dr. Michael Bermeo. He was given new prescriptions for aspirin 81 mg daily and atorvastatin 40 mg daily along with resumption of his previous Flexeril 10 mg p.o. t.i.d. His other evaluation was significant for an LDL of 102, HDL of 34, B12 of 253, triglycerides of 163, MCV of 90. Patient's physical exam was also notable for lordotic spine and inability to fully extend his left elbow past 165 to 170 degrees approximately. He was a pack a day smoker, was not interested in smoking cessation at this time. He is monitored on telemetry and there is no evidence of atrial fibrillation throughout his telemetry stay. FOLLOWUP: He should follow up with Dr. Errol Fajardo and Dr. Michael Bermeo. DISCHARGE MEDICATIONS: Include: 1. Aspirin 81 mg daily (new). 2. Atorvastatin 40 mg each night (new). 3. Flexeril 10 mg p.o. t.i.d. p.r.n. (continue). TIME SPENT: Time spent on discharge 45 minutes. [id number]/[facility] #: [id number] JESSE
== END 2018-04-10 18:00 | disposition home or self-care (01) ==
LOC: ED 16:26 → MEDTELE 22:51
PROVIDERS: ADMIT Internal Medicine; ATTEND Internal Medicine
DX: M50.30 Other cervical disc degeneration, unspecified cervical region (principal); R20.0 Anesthesia of skin; R47.81 Slurred speech; M54.2 Cervicalgia; I10 Essential (primary) hypertension; F17.210 Nicotine dependence, cigarettes, uncomplicated; Z88.0 Allergy status to penicillin
CPT/HCPCS: 36415; 70450; 70496; 70498; 70551; 72141; 80048; 80053; 80061; 80307; 80320; 81003; 81015; 82607; 83036; 83605; 83921; 84484; 85025; 85610; 85730; 87086; 93005; 93306; 93880; 95819; 96361; 96374; 96376; 99285; A9270-GY; G0378; G0480; J1644; Q9967

== ENCOUNTER 2019-01-15 08:17 | Day surgery (SDC) | payer BC ==
--- NOTE | 2019-01-13 09:46 | HP ---
PREOPERATIVE HISTORY AND PHYSICAL: DATE OF ADMISSION/SURGERY: 01/15/19 [facility] DATE OF OFFICE VISIT: 01/13/19 ATTENDING SURGEON: Dr. Mela Roberts * (DICTATED BY MINGO TREJO) PROCEDURE: Left elbow ulnar nerve decompression. CHIEF COMPLAINT: Left elbow. HISTORY OF PRESENT ILLNESS: Jesse is a 58-year-old male who presents to the clinic for followup of numbness and tingling in his left upper extremity due to severe left ulnar injury at the elbow. The EMG showing ongoing denervation. He failed conservative measures, therefore, agreed to undergo left elbow ulnar nerve decompression with Dr. Roberts on 01/15/19. PAST MEDICAL HISTORY: 1. Vertebrobasilar insufficiency. 2. Osteoarthritis. 3. Hyperlipidemia. 4. History of head injury. 5. History of substance abuse. PAST SURGICAL HISTORY: Right-sided facial reconstruction. MEDICATIONS: 1. Gabapentin 100 mg 1 by mouth 3 times a day. 2. Aspirin 81 mg 1 by mouth daily. 3. Lipitor 40 mg 1 by mouth at bedtime. 4. Cyclobenzaprine 10 mg 1 by mouth 3 times a day. 5. Chantix 15 mg 1 by mouth twice a day. ALLERGIES: No known drug allergies. FAMILY HISTORY: Positive for diabetes, heart disease, and [place]. The patient denies family history of DVT or PE. SOCIAL HISTORY: The patient lives alone. 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 He is smoker about a pack per day. He denies alcohol consumption. He is right hand dominant. REVIEW OF SYSTEMS: A 14-point review of systems was reviewed with the patient. Positive for current complaint, otherwise negative. Denies fever, chills, chest pain, shortness of breath, history of bleeding disorder, history of DVT or PE. PHYSICAL EXAMINATION GENERAL: A 58-year-old well-developed, well-nourished male, in no acute distress. Alert and oriented x3. VITAL SIGNS: Height 72, weight 182. Pulse 74, blood pressure 120/86, respiratory rate 16, temperature 96.8, BMI 24.7. HEENT: Normocephalic, atraumatic. PERRLA. Throat clear. NECK: Supple. PULMONARY: Lungs are clear to auscultation bilaterally. No wheezing, rhonchi, or rales. CARDIO: Regular rate and rhythm. S1, S2. No murmurs, gallops, or rubs. No edema. ABDOMEN: Positive bowel sounds. Soft, nontender. NEURO: Alert and oriented x3. Cranial nerves grossly intact. MUSCULOSKELETAL: Left upper extremity skin is intact. No warmth, erythema or obvious deformity. He has mild muscle wasting in the interosseous muscles of the left hand. He can make a fist and extend fingers. His weakness with finger abduction is less compared to right. Positive Tinel over the ulnar nerve at the elbow. Range of motion 30 to 130. Full pronation and supination. +2 radial pulse. Mildly decreased sensation to light touch over the fourth and fifth digits. Otherwise, sensation is intact to light touch distally. ASSESSMENT: Left ulnar neuropathy at the elbow. PLAN: The patient is scheduled to undergo a left elbow ulnar nerve decompression with Dr. Roberts on 01/15/19. He will follow up in 10 to 14 days postop for followup and suture removal. Tylenol and ibuprofen will be used for postop pain management due to his history of substance abuse. MINGO TREJO [id number]/[facility] #: [id number] [facility]IT[facility]
[~2019-01-15 08:17] MED LIST: Buffered Lidocaine 1% SYRIN* 1 ML/SYRINGE INTRADERM ONE; Lactated Ringers 1000 ML Bag* 1,000 ML IV SCH; Sodium Citrate/Citric Acid* 15 ML UDC PO ONE
[2019-01-15] MEDS ORDERED: Sodium Citrate/Citric Acid* 15 ML UDC ONE (08:28)
[2019-01-15] MEDS ORDERED: ceFAZolin 2 GM in NS PREMIX(*) 2 GM/100 ML BAG IVPB ONE (08:28)
[2019-01-15] MEDS ORDERED: Bupivacaine 0.5% SDV PF* 30ML VIAL ONE (09:21)
[2019-01-15] MEDS ORDERED: Naloxone* 0.4 MG/ML 1 ML VIAL IV PRN (09:26)
[2019-01-15] MEDS ORDERED: Midazolam* 1 MG/ML 5 ML VIAL (5 MG) ONE (09:30)
[2019-01-15] MEDS ORDERED: fentaNYL* 50 MCG/ML 2 ML VIAL (100 MCG VIAL) ONE (09:30)
[2019-01-15] MEDS ORDERED: Propofol* 10 MG/ML 20 ML BTL ONE (09:54)
[2019-01-15] MEDS ORDERED: Lidocaine 2% PF * 5 ML VIAL ONE (09:54)
[2019-01-15 10:42] VITALS: BP 130/89
--- NOTE | 2019-01-15 13:33 | OP ---
DATE OF OPERATION: 01/15/19 [facility] DATE OF : 60 SURGEON: Mela Roberts MD BALE BREAKER OPERATOR: MINGO Spivey ANESTHESIA: Local MAC. PRE-OP DIAGNOSIS: Ulnar nerve compression of the left elbow. POST-OP DIAGNOSIS: Ulnar nerve compression of the left elbow. OPERATIVE PROCEDURE: Left ulnar nerve decompression at the elbow. ESTIMATED BLOOD LOSS: Zero. TOURNIQUET TIME: About 30 minutes. INDICATIONS FOR PROCEDURE: Jesse is a 58-year-old man who has numbness and tingling in the ulnar nerve distribution of his left hand. He presents for left ulnar nerve decompression at the elbow. DESCRIPTION OF PROCEDURE: The patient was brought to the operating room, was given a sedation anesthetic and local infiltration of 10 cc of 1% plain lidocaine in the palm of his left hand. The skin of his left hand and forearm was prepped and draped in the usual sterile fashion. The hand and forearm were exsanguinated and the tourniquet elevated to 250 mmHg. A curvilinear incision was made centered between the medial epicondyle on the tip of the olecranon process. We dissected through the subcutaneous tissue sharply with a knife down to the ulnar nerve proximal to the elbow. The nerve was carefully dissected free from the surrounding tissue for several centimeters proximal to the elbow and then released through the cubital tunnel. The superficial and deep portion of the FCU fascia was released as well. The maximal compression was at the cubital tunnel. The medial intermuscular septum was divided. The wound was irrigated copiously with saline. The subcutaneous tissue was reapproximated with 2-0 Vicryl suture and the skin edges were reapproximated with derik. The patient tolerated the procedure well. The wound was dressed with Xeroform, 4x4, Webril, and an Gilson wrap. He was brought to the recovery room in good condition. [id number]/[facility] #: [id number] [facility] CENTERKatharine
== END 2019-01-15 10:56 | disposition home or self-care (01) ==
LOC: OREAST 08:17
PROVIDERS: ATTEND Orthopaedic Surgery
DX: G56.22 Lesion of ulnar nerve, left upper limb (principal); M19.90 Unspecified osteoarthritis, unspecified site; E78.2 Mixed hyperlipidemia; I99.8 Other disorder of circulatory system; F17.210 Nicotine dependence, cigarettes, uncomplicated
CPT/HCPCS: A9270-GY; J0690; J2250; J2704; J3010; J3490

== ENCOUNTER 2019-06-30 09:30 | Emergency (ER) | payer BC ==
--- OUTSIDE RECORDS SUMMARY | 2019-06-30 09:38 | XMS REPORT | Continuity of Care Document ---
:1960 External Reference #:[id number] Author Name Peterson Lucas N.P. (transmitted by agent of provider Krystyna Ferrara) Address [address], [place] [address] Care Team Providers Name Role Phone Michael Bermeo MD - Internal Care Team Information Practice Manager [phone] Medicine Problems Active Problems Provider Date Transient cerebral ischemia Peterson Lucas N.PSanket Onset: 04/09/2018 Neck pain Peterson Lucas N.PSanket Onset: 04/09/2018 Disturbance in speech Peterson Lucas N.Rad Onset: 04/09/2018 Skin sensation disturbance Peterson Lucas N.PSanket Onset: 04/09/2018 Degeneration of cervical intervertebral disc Davie Jackson MD Onset: 04/10/2018 Social History Type Date Description Comments Sex Unknown Tobacco Use Start: Unknown Heavy tobacco smoker (more than 10 cigarettes/day) Smoking Status Reviewed: 06/07/19 Heavy tobacco smoker (more than 10 cigarettes/day) ETOH Use Denies alcohol use quit drinking in his 20's Tobacco Use Start: Unknown Patient is a current smoker, smokes every day Recreational Drug Use Denies Drug Use Exercise Type/Frequency Exercises sporadically Allergies, Adverse Reactions, Alerts Description No Known Drug Allergies Medications Active Medications SIG Qnty Indications Ordering Provider Date Gabapentin 1 tab po tid 60caps Vassilios 04/12/2019 100mg Capsules MD Ángel Gabapentin 1 by mouth 90caps R20.2 Peterson Lucas 12/07/2018 100mg Capsules three times a N.P. day Aspir-81 1 by mouth Unknown 81mg Tablets DR every day (On Hold) Cyclobenzaprine HCL take 1 tab by Unknown 10mg mouth 3 times a Tablets day as needed Chantix 1 by mouth Unknown 0.5mg Tablets twice a day Per pt 12/21/18 has not started Osteo Bi-Flex Regular 1 by mouth Unknown Strength twice daily 250-200mg Tablets History Medications Gabapentin 1 tabs by mouth 60caps Vassilios Dimopoulos, 04/07/2019 - 100mg three times a MD 04/12/2019 Capsules day day 3 2 tabs by mouth three times a day day 5 3 tabs by mouth three times a day Immunizations Description No Information Available Vital Signs Date Vital Result Comment 06/07/2019 8:01am Height 71 inches 5'11" Weight 190.00 lb Heart Rate 76 /min BP Systolic 132 mmHg BP Diastolic 86 mmHg BMI (Body Mass Index) 26.5 kg/m2 04/07/2019 1:30pm Height 71 inches 5'11" Weight 190.00 lb Heart Rate 90 /min BP Systolic Sitting 140 mmHg BP Diastolic Sitting 80 mmHg Pain Level 2 right knee BMI (Body Mass Index) 26.5 kg/m2 Results Description No Information Available Procedures Date Code Description Status 01/15/2019 25078 Neuroplasty &/Or Transposition; Ulnar Nerve AT Elbow Completed 01/15/2019 80858 Neuroplasty &/Or Transposition; Ulnar Nerve AT Elbow Completed Medical Devices Description No Information Available Encounters Type Date Location Provider Dx Diagnosis Office Visit 04/07/2019 Neurosurgery Tam Momin M54.12 Radiculopathy, 1:00p [facility] cervical region Office Visit 02/04/2019 [place] Aly Lucas M54.12 Radiculopathy, 8:00a [facility] N.PSanket cervical region Z86.73 Prsnl hx of TIA (TIA), and cereb infrc w/o resid deficits R20.2 Paresthesia of skin Office Visit 12/23/2018 Neurosurgery Tam Momin M54.12 Radiculopathy, 10:00a [facility] MINGO cervical region Office Visit 12/21/2018 [place] G56.22 Lesion of ulnar 8:30a [facility] nerve, left upper [place] limb Office Visit 12/07/2018 [place] Aly Winkler M54.12 Radiculopathy, 8:30a [facility] Lucas, N.P. cervical region G45.9 Transient cerebral ischemic attack, unspecified R20.2 Paresthesia of skin Z86.73 Prsnl hx of TIA (TIA), and cereb infrc w/o resid deficits Assessments Date Code Description Provider 06/07/2019 M54.12 Radiculopathy, cervical region Peterson Lucas, N.P. 06/07/2019 G56.22 Lesion of ulnar nerve, left upper limb Peterson Lucas, N.P. 06/07/2019 Z86.73 Personal history of transient ischemic Peterson Lucas, N.P. attack (TIA), and cerebral infarction without residual deficits 04/07/2019 M54.12 Radiculopathy, cervical region MINGO Whitney 02/22/2019 G56.22 Lesion of ulnar nerve, left upper limb Trudy BALJIT Mike 02/22/2019 Z47.89 Encounter for other orthopedic aftercare Trudy RoberthsydneySARMAD 02/04/2019 M54.12 Radiculopathy, cervical region Peterson Lucas, N.P. 02/04/2019 Z86.73 Personal history of transient ischemic Peterson Lucas, N.P. attack (TIA), and cerebral infarction without residual deficits 02/04/2019 R20.2 Paresthesia of skin Peterson Lucas, N.P. 02/03/2019 G56.22 Lesion of ulnar nerve, left upper limb Mela Roberts M.D. 02/03/2019 Z47.89 Encounter for other orthopedic aftercare Mela Roberts M.D. 01/25/2019 G56.22 Lesion of ulnar nerve, left upper limb Mela Roberts M.D. 01/25/2019 Z47.89 Encounter for other orthopedic aftercare Mela Roberts M.D. 01/15/2019 G56.22 Lesion of ulnar nerve, left upper limb Elisa Smallwood PA-C 01/15/2019 G56.22 Lesion of ulnar nerve, left upper limb Mela Roberts M.D. 01/13/2019 G56.22 Lesion of ulnar nerve, left upper limb Elisa Smallwood PA-C 12/23/2018 M54.12 Cervical radiculopathy MINGO Whitney 12/21/2018 G56.22 Lesion of ulnar nerve, left upper limb Mela Roberts M.D. 12/07/2018 M54.12 Radiculopathy, cervical region Peterson Lucas, N.P. 12/07/2018 G45.9 Transient cerebral ischemic attack, Peterson Lucas, N.P. unspecified 12/07/2018 R20.2 Paresthesia of skin Peterson Lucas, N.P. 12/07/2018 Z86.73 Personal history of transient ischemic Peterson Lucas, N.P. attack (TIA), and cer Plan of Treatment Future Appointment(s):10/12/2019 8:00 am - Errol Fajardo M.D. at [place] [facility]06/07/2019 - Peterson Lucas, N.P.M54.12 Radiculopathy , cervical nwpgjkY46.22 Lesion of ulnar nerve, left upper limbZ86.73 Personal history of transient ischemic attack (TIA), and cerebral infarction without residualdeficitsFollow up:4 monthsRecommendations:Follow up with Dr Bermeo Regarding your Lipitor Functional Status Description No Information Available Mental Status Description No Information Available Referrals Refer to Dr Reason for Referral Status Appt Date Mela Roberts M.D. ulnar injury ncv/emg done Sent [address] [place] [id number] [phone]
[2019-06-30] MEDS ORDERED: Aspirin 81 mg CHEW TAB* 81 MG TAB.CHEW PO ONE ×2 (09:42→09:52)
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
[2019-06-30 10:15] LABS: ABS Basophils 0.1 10^3/ul (0-0.2); ABS Lymphocytes 2.3 10^3/ul (1.0-4.8); ABS Monocytes 0.7 10^3/ul (0-0.8); ABS Neutrophils 13.6 10^3/ul (1.5-7.7); Eosinophil % 0.2 %; Hematocrit 43 % (42-52); Hemoglobin 14.9 g/dL (14.0-18.0); Lymphocyte % 13.8 %; Mean Corpuscular HGB Conc 35 g/dL (31-36); Mean Corpuscular Hemoglobin 31 pg (27-31); Mean Corpuscular Volume 90 fL (80-94); Mean Platelet Volume 8.4 fL (7.4-10.4); Nucleated Red Blood Cells % 0.1; Platelet Count 300 10^3/uL (150-450); Red Blood Count 4.75 10^6 /uL (4.18-5.48); Red Cell Distribution Width 13 % (10-15); White Blood Count 16.7 10^3/uL (3.5-10.8)
[2019-06-30 10:35] LABS: Albumin 4.1 g/dL (3.2-5.2); Albumin/Globulin Ratio 1.4 (1-3); BUN/Creatinine Ratio 17.9 (8-20); Calcium 9.3 mg/dL (8.6-10.3); EGFR African American 123.7 (>60); EGFR Non-African American 102.2 (>60); Globulin 2.9 g/dL (2-4); Potassium 3.7 mmol/L (3.5-5.0); Total Bilirubin 0.4 mg/dL (0.2-1.0); Troponin I 0.01 ng/mL (<0.03)
[2019-06-30 13:30] VITALS: BP 142/84
== END 2019-06-30 13:29 | disposition home or self-care (01) ==
LOC: ED 09:30
DX: R07.89 Other chest pain (principal); E78.00 Pure hypercholesterolemia, unspecified; G89.29 Other chronic pain; M54.2 Cervicalgia; Z79.899 Other long term (current) drug therapy; Z82.49 Family history of ischemic heart disease and other diseases of the circulatory system; F17.210 Nicotine dependence, cigarettes, uncomplicated
CPT/HCPCS: 36415; 71046; 80053; 84484; 85025; 93005; 99283; A9270-GY